=== PATIENT | male | born 1975 | race Caucasian/White ===

== ENCOUNTER 2017-05-12 15:02 | Emergency (ER) | payer MEDICAID, OTHER ==
[~2017-05-12] VITALS: Ht 185.4 cm; Wt 83.9 kg
[2017-05-12] MEDS ORDERED: SILVER SULFADIAZINE 1 % TOPICAL CREAM 50GM TOP ONE (15:15)
[2017-05-12 15:30] VITALS: BP 158/93
[2017-05-12] MEDS ORDERED: HYDROcodone-ACET 5/325MG TAB PO ONE (15:30)
== END 2017-05-12 17:27 | disposition home or self-care (01) ==
LOC: ER 15:05
DX: T20.19XA Burn of first degree of multiple sites of head, face, and neck, initial encounter (principal); T21.11XA Burn of first degree of chest wall, initial encounter; X08.8XXA Exposure to other specified smoke, fire and flames, initial encounter; Y93.89 Activity, other specified; Y99.8 Other external cause status; Y92.89 Other specified places as the place of occurrence of the external cause
CPT/HCPCS: 16000